=== PATIENT | female | born 1955 | race Two or more races ===

== ENCOUNTER → 2024-03-18 | Outpatient (CLI) | payer OTHER, MEDICAID, SELFPAY ==
--- NOTE | 2024-03-18 16:41 | XR_ITS ---
Examination: Abdomen AP single view Technique: AP portable supine abdomen, single view Exam date and time: March 18, 2024 1642 hrs. Indications: History kidney stones right ureteral stent Findings: Calculi in the mid and lower right kidney, the largest in the lower pole measuring 9 mm Right ureteral stent satisfactory position No left renal calculi noted Nonobstructive bowel gas pattern Impression: Right renal calculi as above
== END | disposition home or self-care (01) ==
PROVIDERS: PCP Family Medicine; Referring Provider Surgery; Visit Provider Surgery
DX: N20.0 Calculus of kidney (principal)
CPT/HCPCS: 74018